=== PATIENT | male | born 1930 | race Caucasian/White ===

== ENCOUNTER 2018-01-08 12:38 | Outpatient (CLI) | payer MEDICARE ==
--- NOTE | 2018-01-08 14:13 | MRI ---
MRI OF LUMBAR SPINE: Date: 01/08/18 COMPARISON: None. HISTORY: Low back pain extending into the right leg, lumbar radiculopathy. TECHNIQUE: Multiplanar, multisequence MR imaging of the lumbar spine obtained without contrast. FINDINGS: The sagittal STIR imaging demonstrates no significant osseous marrow edema. There is a severe L1 compression fracture with prominent loss of vertebral body height centrally, wit h loss of vertebral body height advanced when compared to 04/25/17 lumbar spine radiographs. There is no significant anterolisthesis or retrolisthesis seen within the lumbar spine. Conus medullaris terminates at the L1-2 level. T12-L1: Mild bilateral facet hypertrophy, right greater than left. There is disc space narrowing and disc river iccation. There is no significant central canal or neural foraminal stenosis. There is mild osseous retropulsio n on the basis of above described L1 fracture with no significant resultant central canal stenosis. L1-2: Mild bilateral facet hypertrophy. There is disc space narrowing, disc desiccation, and mild disc bulg e with no central canal stenosis. There is no significant neural foraminal stenosis on either side. L2-3: There is significant bilateral facet hypertrophy with fluid within bilateral facet joints. This can b e seen on the basis of instability. There is disc space narrowing with mild disc bulge and mild centr al canal stenosis. No significant neural foraminal stenosis. There is a prominent L3 hemangioma noted . L3-4: Bilateral facet hypertrophy and hypertrophy of ligamentum flavum, right greater than left. There is f luid seen within the facet joint on the right. There is disc space narrowing, disc desiccation, and m ild disc bulge with mild central canal stenosis. Mild bilateral neural foraminal stenosis. L4-5: Bilateral facet hypertrophy and hypertrophy of ligamentum flavum. Disc space narrowing, disc desiccat ion, and vacuum disc present. Mild disc bulge with mild central canal stenosis. Mild bilateral neural foraminal stenosis. L5-S1: There is disc space narrowing, disc desiccation, and vacuum disc formation. There is a small central disc osteophyte complex without significant central canal stenosis. Bilateral facet hypertrophy noted with minimal bilateral neural foraminal stenosis. Review of the retroperitoneal structures demonstra preeti a retroaortic left renal vein. IMPRESSION: 1. Multilevel degenerative change noted within the lumbar spine. There is a chronic L1 compression f racture with severe loss of vertebral body height centrally. 2. There is fluid seen within facet joints within the lumbar spine, which can be seen on the basis o f instability. Flexion/extension radiographs are thus suggested. POS: DANILO
== END 2018-01-08 12:39 | disposition home or self-care (01) ==
LOC: TBSIIMAG 12:38
PROVIDERS: ATTEND Neurological Surgery
DX: M47.26 Other spondylosis with radiculopathy, lumbar region (principal); M48.56XA Collapsed vertebra, not elsewhere classified, lumbar region, initial encounter for fracture
CPT/HCPCS: 72148

== ENCOUNTER 2020-09-21 08:24 | Day surgery (SDC) | payer MEDICARE ==
[2020-09-20 15:12] VITALS: BMI 25.8
[2020-09-21 08:53] LABS: #Eosinphils 0.2 thou/uL (0.0-0.7); #Lymphocytes 2.6 thou/uL (1.20-3.40); #Monocytes 0.9 thou/uL (0.11-0.59); #Neutrophils 4.8 thou/uL (1.40-6.50); %Basophils 0.4 % (0.0-1.0); %Lymphocytes 30.8 % (21.0-51.0); %Monocytes 10.3 % (0.0-10.0); %Neutrophils 56.5 % (42.0-75.0); Hemoglobin 10.4 g/dL (14.0-18.0); Mean Corpuscular HGB CONC 30.7 g/dL (32.0-36.0); Mean Corpuscular Hemoglobin 30.3 pg (27.0-31.0); Mean Corpuscular Volume 98.7 fL (78.0-98.0); Mean Platelet Volume 7.1 fL (7.4-10.4); Platelet Count 244 thou/uL (130-400); RBC Distribution Width 12.6 % (11.5-14.5); Red Blood Cell (RBC) Count 3.44 mill/uL (4.70-6.10); White Blood Cell (WBC) Count 8.5 thou/uL (4.8-10.8)
[2020-09-21 08:56] LABS: INR-International Normal Ratio 1.1; PTT 26.5 sec (22.9-36.1)
[2020-09-21] MEDS ORDERED: FLU VACC QS2020-21(65YR UP)/PF 240 MCG/0.7 ML SYRINGE IM ONE (09:00)
[2020-09-21 10:06] VITALS: BP 133/64; TEMP 98.4
[2020-09-21] MEDS ORDERED: Fentanyl 100 MCG/2 ML VIAL ONE (11:38)
[2020-09-21] MEDS ORDERED: Lidocaine 1% PF 5 ML VIAL ONE (11:38)
[2020-09-21] MEDS ORDERED: Sodium Bicarbonate 2.5 MEQ/5 ML VIAL ONE (11:38)
--- NOTE | 2020-09-21 14:46 | RAD ---
RADIOGRAPH CHEST 2 VIEW: DATE: 09/21/2020 TIME: 1:19 PM HISTORY: 89-year-old male status post right lung biopsy. Evaluate for pneumothorax. COMPARISON: 08/24/2020 FINDINGS: 2 frontal views in inspiration and expiration. Right hemidiaphragm is elevated and fixed, while the left hemidiaphragm is mobile. Moderately large right upper lobe pulmonary mass is again noted, contiguous with the right hilum. Tiny loculated right apical pneumothorax seen on CT is not visible on plain radiograph. Hazy patchy ill-defined infiltrates, including right midlung zone, left lower lung zone, and scattere d nodular noncalcified lesions in left upper and mid lung zones. No cardiomegaly. IMPRESSION: 1) no pneumothorax visible 2) right phrenic nerve palsy. 3) right upper lobe pulmonary mass suspicious for lung cancer. 4) scattered bilateral infiltrates.
--- NOTE | 2020-09-21 14:57 | RAD ---
Exam: Upright inspiratory and aspirate chest radiograph COMPARISON: 09/21/2020 at 1:19 PM HISTORY: Right upper lobe percutaneous biopsy FINDINGS: Portable upright chest radiograph redemonstrate elongation of the aorta. There is a normal cardiac silhouette. Right phrenic nerve palsy with elevation right hemidiaphragm, redemonstrated Chronic lung parenchymal changes. Redemonstration of a right upper lobe mass. There is no pneumothora x. Mild bony mineralization is identified IMPRESSION: No pneumothorax.
--- NOTE | 2020-09-22 10:49 | CT ---
CT-guided right lung biopsy: 09/21/2020 HISTORY: 89-year-old male with right upper lobe pulmonary mass. TECHNIQUE: Signed informed consent obtained. Patient placed supine on CT table. Procedure performed under step C T guidance. Skin of right anterior upper chest prepared and draped in usual sterile fashion. 25-gauge needle used to apply buffered lidocaine superficially and deeply. 19-gauge introducer needle incrementally advanced through medial aspect of right pectoralis muscle into the opacified portion of right upper lobe contiguous with anteromedial right pleural surface. Stylette removed from introdu cer needle. 20-gauge biopsy needle advanced in coaxial fashion through the introducer needle. Biopsy gun fired, yielding 1.8 cm core tissue sample which was smeared on slides and given to patholo gist. This was repeated 2 more times for total of 3 passes. The second tissue sample was placed into a sterile cup with preservative-free water, for AFB, culture, and sensitivity. The third sample was placed directly into formalin. Needle was removed. Patient tolerated procedure well. No major complications. FINDINGS: Touch preparation preliminary microscopy showed no malignant cells. Instead, giant cells and macropha ges were visualized. CTs step images demonstrate partial retraction of stylette from introducer needle, with tip 1.5 cm de ep to anterior pleural surface. The biopsy throw was 1.8 cm deep to this,, which would be approximately 3 to 3.5 cm deep to the pleur al surface. There is a tiny right apical loculated pneumothorax, which did not grow on subsequent chest radiograp h. IMPRESSION: 1.) 20-gauge core biopsy x3 of right upper lobe lung lesion. 2) no malignant cells visualized. It is quite possible that the area biopsied was postobstructive pne umonitis or atelectasis, and that neoplastic tissue was much more posterior to this area, and was missed. Possibility of infection with atypical organism, is less likely. If the final histology resul ts are nondiagnostic, then the best option would be bronchoscopy. If that is not possible, then repeat CT-guided biopsy, with deeper placement of biopsy needle, is available. Transcribed Date/Time: 09/22/2020 10:49 AM
[2020-09-24 14:15] LABS: Fungus Stain Final report (.)
== END 2020-09-21 15:05 | disposition home or self-care (01) ==
LOC: CT 08:24
PROVIDERS: ATTEND Internal Medicine Hematology & Oncology
PROC: 0BBC3ZX Excision of Right Upper Lung Lobe, Percutaneous Approach, Diagnostic (ICD-10-PCS; principal; 2020-09-21)
DX: J98.4 Other disorders of lung (principal); I48.91 Unspecified atrial fibrillation; M19.90 Unspecified osteoarthritis, unspecified site; E03.9 Hypothyroidism, unspecified; F03.90 Unspecified dementia, unspecified severity, without behavioral disturbance, psychotic disturbance, mood disturbance, and anxiety; Z86.73 Personal history of transient ischemic attack (TIA), and cerebral infarction without residual deficits; Z79.899 Other long term (current) drug therapy
CPT/HCPCS: 32405; 36415; 71045; 77002; 85025; 85610; 85730; 87102; 87206; 88305; 88312; 88333; 88341; 88342; J3010

== ENCOUNTER 2020-09-29 11:17 | Day surgery (SDC) | payer MEDICARE ==
--- NOTE | 2020-09-28 20:21 | HP ---
09/29/2020 HISTORY OF PRESENT ILLNESS: Mr. Villegas is a gentleman, who is 89 years of age. He was found to have a large lung mass after developing hemoptysis. CT-guided biopsy of his right upper lobe mass was nondiagnostic. He was referred here for possible bronchoscopy. PAST MEDICAL HISTORY: Remarkable for atrial fibrillation, not on anticoagulation; degenerative arthritis; history of skin cancer; history of TIA; history of hypothyroidism; history of dementia. PAST SURGICAL HISTORY: History of cholecystectomy. SOCIAL HISTORY: He is a nonsmoker and nondrinker. MEDICATIONS: He is on, 1. Thyroid replacement. 2. Lasix. 3. Memantine. 4. Propafenone. 5. Potassium. 6. Spironolactone. FAMILY HISTORY: Negative for lung disease in early age. REVIEW OF SYSTEMS: Otherwise negative. PHYSICAL EXAMINATION: GENERAL: Very pleasant gentleman, in no distress. VITAL SIGNS: He is 5 feet 8 inches, 162 pounds, pulse is 80, respiratory rate is 18, and oximetry is 96. HEAD AND NECK: Unremarkable. I did not palpate any cervical or supraclavicular lymph nodes. LUNGS: Clear. HEART: Regular rhythm. S1 and S2 are normal. ABDOMEN: Soft and nontender. EXTREMITIES: Without clubbing, cyanosis, or edema. LABORATORY DATA: Chest CT is reviewed. He has a very large right upper lobe mass plus he has two masses in the left lung. 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 PLAN: Bronchoscopy hopefully to obtain enough tissue for immuno-markers to decide whether or not he is a candidate for immunotherapy. Obviously, conventional chemotherapy at 89 years of age is probably not a great option. Risks of bleeding, infection, lung collapse and least likely were explained to the patient. The patient is on the schedule for tomorrow, the 29 of September after lunch. Job ID: [id number] MTDD
[~2020-09-29 11:17] MED LIST: Lidocaine 1% PF 5 ML VIAL ONE; Ondansetron PF 4 MG/2 ML Vial ONE; PROPOFOL 200 MG/20 ML VIAL ONE; Rocuronium Bromide 10 MG/ML (10ML VIAL) ONE
[2020-09-29 13:27] LABS: SARS-CoV-2 NAA Rapid Test Not Detected (NotDetected)
[2020-09-29] MEDS ORDERED: Lidocaine 2% Jelly 5 ML TUBE ONE (13:40)
[2020-09-29] MEDS ORDERED: Lidocaine 1% (PF) 30 ML VIAL ONE (13:40)
[2020-09-29] MEDS ORDERED: Fentanyl 100 MCG/2 ML VIAL ONE (13:53)
[2020-09-29] MEDS ORDERED: SUGAMMADEX SODIUM 200 MG/2 ML VIAL ONE (14:10)
[2020-09-29] MEDS ORDERED: Ketamine 50 MG/ML (10ML VIAL) ONE (14:21)
--- NOTE | 2020-09-30 08:31 | OP ---
DATE OF PROCEDURE: 09/29/2020 PROCEDURE PERFORMED: Bronchoscopy. INDICATION: Large lung mass, unsuccessful tissue diagnosis with a CT-guided biopsy. Consent was obtained from the patient's family. Risks of bleeding, infection, lung collapse, and least likely were explained. DESCRIPTION OF PROCEDURE: The patient was sedated by Anesthesia. Tracheobronchial tree surprisingly was normal appearing other than scattered white mucus. The right upper lobe anterior segment and apical segment were extrinsically compressed. I was able to pass a brush into multiple segments in the upper lobe and washed the upper lobe, but I did not see anything that could be biopsied. I have asked Cardiothoracic Surgery to see him in the office in followup and consider mediastinoscopy to try to grab a lymph node to see if that gives us a tissue diagnosis. I discussed the above with Dr. Boyle as well. He tolerated the procedure well. He was taken to recovery room to be extubated, transferred back to postanesthesia care unit and then home. Job ID: [id number]
[2020-10-04 09:36] LABS: Fungus Stain Final report (.)
== END 2020-09-29 17:00 | disposition home or self-care (01) ==
LOC: SDC 11:17
PROVIDERS: ATTEND Internal Medicine Critical Care Medicine
PROC: 0BDF8ZX Extraction of Right Lower Lung Lobe, Via Natural or Artificial Opening Endoscopic, Diagnostic (ICD-10-PCS; principal; 2020-09-29)
DX: R91.8 Other nonspecific abnormal finding of lung field (principal); I48.91 Unspecified atrial fibrillation; M19.90 Unspecified osteoarthritis, unspecified site; E03.9 Hypothyroidism, unspecified; F03.90 Unspecified dementia, unspecified severity, without behavioral disturbance, psychotic disturbance, mood disturbance, and anxiety; Z86.73 Personal history of transient ischemic attack (TIA), and cerebral infarction without residual deficits; Z79.899 Other long term (current) drug therapy; Z20.828 Contact with and (suspected) exposure to other viral communicable diseases
CPT/HCPCS: 31623; 76000; 87070; 87077; 87102; 87116; 87205; 87206 ×2; 88112; 88305; U0002; J2001; J2405; J2704; J3010

== ENCOUNTER 2020-10-25 12:33 | Outpatient (CLI) | payer MEDICARE ==
[2020-10-25 14:25] LABS: Hemoglobin 11.6 g/dL (14.0-18.0); Mean Corpuscular HGB CONC 30.5 G/DL (32.0-36.0); Mean Corpuscular Hemoglobin 30.7 PG (27.0-33.0); Mean Corpuscular Volume 100.5 fl (80.0-100.0); Mean Platelet Volume 10.4 fl (7.4-10.4); Platelet Count 303 10x3/uL (130-400); RBC Distribution Width 16.5 % (11.5-14.5); Red Blood Cell (RBC) Count 3.78 10x6/uL (4.40-5.80); White Blood Cell (WBC) Count 9.9 10x3/uL (4.5-11.0)
[2020-10-25 14:42] LABS: Anion Gap 15 mmol/L (10-20); BUN (Urea Nitrogen) 31 mg/dL (8.4-25.7); Calc. Creatinine Clearance 0 mL/min (70-130); Calcium 8.9 mg/dL (7.8-10.44); Carbon Dioxide 29 mmol/L (23-31); Chloride 99 mmol/L (98-107); Glucose 105 mg/dL (83-110); Potassium 4.6 mmol/L (3.5-5.1); Sodium 138 mmol/L (136-145)
[2020-10-26 02:07] LABS: SARS-CoV-2 MS2 Positive; SARS-CoV-2 N Gene Negative; SARS-CoV-2 S Gene Negative; SARS-CoV-2 by NAA Not Detected (NotDetected); SARS-CoV-2 orf1ab Negative
== END 2020-10-25 12:34 | disposition home or self-care (01) ==
LOC: LABBT 12:33
PROVIDERS: ATTEND Thoracic Surgery (Cardiothoracic Vascular Surgery)
DX: Z01.818 Encounter for other preprocedural examination (principal); Z01.812 Encounter for preprocedural laboratory examination; R91.8 Other nonspecific abnormal finding of lung field; Z20.822 Contact with and (suspected) exposure to COVID-19; R59.0 Localized enlarged lymph nodes
CPT/HCPCS: 80048; 85027; 93005; U0003; 87635; 93010

== ENCOUNTER 2020-10-27 05:42 | Day surgery (SDC) | payer MEDICARE ==
[2020-10-26 08:29] VITALS: BMI 24.0
[2020-10-27] MEDS ORDERED: EPINEPHrine 1 MG/ML AMP ONE (06:31)
[2020-10-27] MEDS ORDERED: Bupivacaine PF 0.5% 30 ML VIAL ONE (06:31)
[2020-10-27] MEDS ORDERED: Fentanyl 100 MCG/2 ML VIAL ONE (06:52)
--- NOTE | 2020-10-27 08:35 | OP ---
DATE OF PROCEDURE: 10/27/2020 PREOPERATIVE DIAGNOSIS: Right upper lobe lung mass with mediastinal adenopathy. POSTOPERATIVE DIAGNOSIS: Right upper lobe lung mass with mediastinal adenopathy. PROCEDURE PERFORMED: Cervical mediastinoscopy with biopsy of level 4 lymph node. ANESTHESIA: General endotracheal - Dr. Cameron Pan. ESTIMATED BLOOD LOSS: Less than 50. SPECIMENS: Level 4 lymph node for lymph node protocol. DESCRIPTION OF PROCEDURE: After consent was obtained, the patient was brought to the operating room, placed in supine position on the operating table. Appropriate central line and monitors were placed, and general endotracheal anesthesia was induced. The neck was extended and supported appropriately. SCDs were used. Neck was prepped and draped in usual sterile fashion. Skin incision was made in a skin crease and dissection down through the platysma obtained with electrocautery. Anterior tracheal fascia was entered and blunt dissection used to enter the mediastinum. The mediastinal scope was inserted and large anthracotic nodes were noted and multiple biopsy specimens taken and sent for pathologic exam. Hemostasis was ensured. Wound was infiltrated with 0.5% Marcaine. The wounds were then closed in layers with Dermabond applied to the skin. The patient was awakened, extubated, and transferred to recovery room in stable condition. Needle, sponge, and instrument counts were all reported as correct at the end of the procedure. Job ID: [id number]
[2020-10-27] MEDS ORDERED: Lidocaine 1% PF 5 ML VIAL ONE (08:45)
[2020-10-27] MEDS ORDERED: PROPOFOL 200 MG/20 ML VIAL ONE (08:45)
[2020-10-27] MEDS ORDERED: Ondansetron PF 4 MG/2 ML Vial ONE (08:45)
[2020-10-27] MEDS ORDERED: Rocuronium Bromide 10 MG/ML (10ML VIAL) ONE (08:45)
[2020-10-27] MEDS ORDERED: Glycopyrrolate 0.2 MG/ML 5 ML SYRINGE ONE (08:45)
[2020-10-27] MEDS ORDERED: Acetaminophen 325 MG TAB ONE (10:30)
[2020-10-27] MEDS ORDERED: Acetaminophen 325 MG/10.15 ML UDCUP ONE (10:32)
== END 2020-10-27 10:40 | disposition home or self-care (01) ==
LOC: SDC 05:42
PROVIDERS: ATTEND Thoracic Surgery (Cardiothoracic Vascular Surgery)
PROC: 07B74ZX Excision of Thorax Lymphatic, Percutaneous Endoscopic Approach, Diagnostic (ICD-10-PCS; principal; 2020-10-27)
DX: J60 Coalworker's pneumoconiosis (principal); R59.0 Localized enlarged lymph nodes; I48.0 Paroxysmal atrial fibrillation; E03.9 Hypothyroidism, unspecified; F03.90 Unspecified dementia, unspecified severity, without behavioral disturbance, psychotic disturbance, mood disturbance, and anxiety; M19.90 Unspecified osteoarthritis, unspecified site; Z85.828 Personal history of other malignant neoplasm of skin; Z86.73 Personal history of transient ischemic attack (TIA), and cerebral infarction without residual deficits; Z79.899 Other long term (current) drug therapy; Z88.6 Allergy status to analgesic agent
CPT/HCPCS: 88184; 88307; 88312; 88341; 88342; J0171; J0690; J2405; J2704; J3010; S0020

== ENCOUNTER 2020-11-09 08:11 | Outpatient (CLI) | payer MEDICARE, OTHER ==
--- NOTE | 2020-11-09 09:26 | CT ---
CT CHEST WITHOUT CONTRAST CLINICAL INDICATION: Follow-up lung mass COMPARISON: 09/01/2020 FINDINGS: Aorta: Vascular calcifications are seen in the thoracic aorta at the origin of the great vessels and involving coronary arteries. Lungs: Previously noted large right upper lobe mass is again present. This mass measures 10.3 cm AP x 6.3 cm transverse with prior measurement of 10.2 cm x 6.9 cm in maximal axial dimensions. Subjectively, this area also appears improved. There is now area of cavitation seen within this mass. There are also areas of air bronchograms now noted within this masslike area which were not seen on prior study. Again noted are adjacent areas of increased density likely related to postobstructive atelectasis or pneumonitis which has slightly improved. Again noted are the scattered reticular as well as nodular densities within the lungs bilaterally may be related to infectious process. There is slightly greater patchy parenchymal density now present at the right lung base. The nodular masslike opacity in the left upper lobe has almost completely res olved previously measuring 2.8 cm in maximal dimension and now measures 1 cm. There is also been interval decrease in size of the large nodule in the anterior aspect left lower lobe previously measu ring 2.2 cm with greatest dimension on the current study of 1.3 cm. There has been resolution of the minimal right pleural effusion noted on prior exam. No pleural fluid is seen on current study. Mediastinum: There is prominence of mediastinal lymph nodes on the prior exam. These lymph nodes are again seen but have decreased in size. These lymph nodes measure less than 1 cm in short axis dimension. Thyroid gland: Normal CT appearance. Osseous structures: Compression fractures involving the T11, T12, and L1 vertebral bodies are again s een and unchanged. There is incomplete imaging of the L2 vertebral body fracture, but there is suggestion of a superior endplate compression fracture of the L2 vertebral body. Age of the fracture L2 vertebral body fracture is indeterminate but was not seen on MRI lumbar spinal 01/08/2018. Degenerative changes are seen in the lower thoracic and visualized upper lumbar spine. Chest wall: No abnormality visualized. Upper abdomen: Postcholecystectomy changes are seen. Hepatic granuloma is again seen. IMPRESSION: 1. Previously noted large mass in the right upper lobe has slightly diminished in size, and there is now area of cavitation within the more posterior aspect of the mass and air bronchograms are are also now visualized. In addition, there has been almost complete resolution of the masslike density i n the left upper lobe with significant interval decrease in size of the nodular density in the left lower lobe. In the absence of interval treatment for neoplasia, these findings are felt to likely be related to interval improvement in multifocal infectious process. 2. Scattered reticular nodular densities within the lungs bilaterally which may be related to bronchi olitis related to infectious or inflammatory process. 3. Mild improvement in the mediastinal lymphadenopathy. 4. Compression fractures lower thoracic and upper lumbar spine. The compression fracture superior end plate L2 vertebral body was not imaged on prior study, and exact age is indeterminate.
== END 2020-11-09 08:12 | disposition home or self-care (01) ==
LOC: CT 08:11
PROVIDERS: ATTEND Internal Medicine Critical Care Medicine
DX: R22.2 Localized swelling, mass and lump, trunk (principal); R91.8 Other nonspecific abnormal finding of lung field; J98.4 Other disorders of lung; R59.0 Localized enlarged lymph nodes; M48.56XA Collapsed vertebra, not elsewhere classified, lumbar region, initial encounter for fracture; M48.54XA Collapsed vertebra, not elsewhere classified, thoracic region, initial encounter for fracture
CPT/HCPCS: 71250